=== PATIENT | male | born 1975 | race Caucasian/White ===

== ENCOUNTER 2016-08-05 20:16 | Emergency (ER) | payer SELFPAY ==
[~2016-08-05] VITALS: Ht 167.6 cm; Wt 105.0 kg
[2016-08-05] MEDS ORDERED: KETOROLAC 30 MG/1 ML IVPush ONE (20:30)
[2016-08-05] MEDS ORDERED: SODIUM CHLORIDE FLUSH 10ML SYR IVF ONE (20:30)
[2016-08-05] MEDS ORDERED: SODIUM CHLORIDE 0.9% 1,000ML IVBOLUS ONE ×3 (20:30→23:00)
[2016-08-05] MEDS ORDERED: KETOROLAC 30 MG/1 ML ONE (21:18)
[2016-08-05 21:28] LABS: HEMOGLOBIN 15.3 g/dL (13.7-18.0)
[2016-08-05 21:39] LABS: BLOOD UREA NITROGEN 17 mg/dL (7-18)
[2016-08-05 21:54] LABS: PATH.CAST-FLAG NOT PRESENT; SPERM-FLAG NOT PRESENT; SRC-FLAG NOT PRESENT; XTAL-FLAG NOT PRESENT; YLC-FLAG NOT PRESENT
[2016-08-05 22:33] LABS: RAPID INFLUENZA A Negative (Negative); RAPID INFLUENZA B Negative (Negative)
[2016-08-05] MEDS ORDERED: SODIUM CHLORIDE 0.9% 1,000 ML IV ONE (22:48)
[2016-08-06 00:31] VITALS: BP 122/63
== END 2016-08-06 00:45 | disposition home or self-care (01) ==
LOC: ED 23:59
DX: B34.9 Viral infection, unspecified (principal); D72.829 Elevated white blood cell count, unspecified
CPT/HCPCS: 36415; 71010; 80048; 81001; 82040; 83605; 84145; 85025; 87040; 87400; 96361; 96374; 99285; J1885; J7030

== ENCOUNTER 2016-08-08 18:33 | Emergency (ER) | payer OTHER ==
[~2016-08-08] VITALS: Ht 167.6 cm; Wt 104.0 kg
[2016-08-08] MEDS ORDERED: SODIUM CHLORIDE 0.9% 1,000ML IVBOLUS ONE (19:00)
[2016-08-08] MEDS ORDERED: KETOROLAC 30 MG/1 ML IVPush ONE (19:00)
[2016-08-08] MEDS ORDERED: OLAN10TA9 PO (19:01)
[2016-08-08] MEDS ORDERED: KETOROLAC 30 MG/1 ML ONE (19:07)
[2016-08-08 19:40] VITALS: BP 134/65
[2016-08-08 19:53] LABS: BLOOD UREA NITROGEN 17 mg/dL (7-18)
== END 2016-08-08 20:20 | disposition home or self-care (01) ==
LOC: ED 20:00
DX: B34.9 Viral infection, unspecified (principal); Z59.0 Homelessness
CPT/HCPCS: 36415; 80048; 85025; 96361; 96374; 99284; J1885; J7030

== ENCOUNTER 2016-08-15 12:44 | Emergency (ER) | payer OTHER ==
[~2016-08-15] VITALS: Ht 167.6 cm; Wt 100.9 kg
[~2016-08-15 12:44] MED LIST: OLAN10TA9 PO
[2016-08-15 16:09] VITALS: BP 110/59
== END 2016-08-15 16:11 | disposition home or self-care (01) ==
LOC: ED 14:18
DX: J20.8 Acute bronchitis due to other specified organisms (principal)
CPT/HCPCS: 71010; 99283